=== PATIENT | male | born 1960 | race African-American/Black ===

== ENCOUNTER 2016-07-26 13:46 | Emergency (ER) | payer MEDICAID ==
[~2016-07-26] VITALS: Ht 177.8 cm; Wt 110.0 kg
[2016-07-26 13:51] VITALS: BP 151/95; PULSE 65; RESP 15; TEMP 98.2; O2SAT 95
[2016-07-26] MEDS ORDERED: TRAZ50TA12 PO (14:16)
[2016-07-26] MEDS ORDERED: METO100T PO (14:16)
[2016-07-26] MEDS ORDERED: GABA300C5 PO (14:16)
[2016-07-26] MEDS ORDERED: APIX5TAB PO (14:16)
--- NOTE | 2016-07-26 14:23 | PD ---
HPI Chief Complaint: Abnormal Results Time Seen by Provider: 14:23 Travel History International Travel<30 days: No Contact w/Intl Traveler<30days: No Traveled to known affect area: No History of Present Illness HPI 56-year-old male with a history of hypertension, hyperlipidemia, diabetes, history of right-sided hemorrhagic stroke status post craniotomy with residual left-sided deficits, bilateral DVTs, CHF with AICD pacemaker, A. fib anticoagulated on Eliquis presents to the emergency department for evaluation of left leg DVT. The patient states that he has had intermittent swelling in the left leg for the past 3-4 months. States that he told his PCP Dr. Little about the swelling and had an ultrasound done as an outpatient yesterday which shows he has a DVT of the left leg. States he was told to come to the emergency department for further evaluation. Patient states that he has filters placed in his groin to prevent blood clots from moving. States that he' s had bilateral DVTs since his stroke 18 months ago. He denies any pain in the leg. States that he does have paresthesias in the left leg that have been constant since the stroke. Denies any new numbness or tingling, weakness, fever , chills, nausea, vomiting, chest pain, shortness of breath, lightheadedness. No other complaints. PFSH Past Medical History Hx Anticoagulant Therapy: Yes Atrial Fibrillation: Yes Blood Disorders: Yes Depression: Yes Heart Rhythm Problems: Yes Cardiomyopathy: Yes (heart failure) High Cholesterol: Yes Congestive Heart Failure: Yes Cerebrovascular Accident: Yes Diabetes: Yes Patient Takes Glucophage: No Hypertension: Yes Medical other: Yes (dvt, uri, anemia) Tetanus Vaccination: < 5 Years Past Surgical History Neurologic Surgery: Yes (brain r/t brain bleed) Pacemaker: Yes (defib) Other Surgery: Yes (greenfilter) Social History Alcohol Use: No Tobacco Use: No Substance Use: No Allergies-Medications Reported Meds & Prescriptions Reported Meds & Active Scripts Active Reported Gabapentin 300 Mg Cap 300 Mg PO BID Metoprolol Tartrate 100 Mg Tab 100 Mg PO DAILY Trazodone (Trazodone HCl) 50 Mg Tab 50 Mg PO HS Eliquis (Apixaban) 5 Mg Tab 5 Mg PO BID Review of Systems Except as stated in HPI: all other systems reviewed are Neg Physical Exam Narrative GENERAL: Well-nourished and well-developed pleasant male patient in no acute distress. Obvious left sided deficits. SKIN: Warm and dry. HEAD: Post surgical right craniotomy. Atraumatic. EYES: No injection, drainage, or hyphema noted. PERRLA. EOMI. ENT: No nasal drainage noted. Oropharynx is clear. NECK: Supple and the trachea is midline. CARDIOVASCULAR: Regular rate and rhythm. RESPIRATORY: Breath sounds are equal bilaterally with no accessory muscle use, wheezing, rhonchi, or crackles. GASTROINTESTINAL: Abdomen is soft, non-tender, and nondistended. MUSCULOSKELETAL: Slight swelling of left ankle, patient reports this as chronic after an ankle fracture several years ago. No swelling of left leg compared to right. No calf tenderness. No obvious deformities, swelling, cyanosis, or ecchymosis is present throughout the upper and lower extremities. DP pulses palpable bilaterally. Capillary refill is within normal limits. Weakness in left arm and left leg chronic since CVA per patient. NEUROLOGICAL: Awake, alert, and oriented. Normal speech. Cranial nerves are grossly intact. Data Data Last Documented VS Vital Signs Date Time Temp Pulse Resp B/P Pulse Ox O2 Delivery O2 Flow Rate FiO2 07/26/16 13:51 98.2 65 15 151/95 95 MDM Medical Decision Making Medical Screen Exam Complete: Yes Emergency Medical Condition: Yes Differential Diagnosis DVT versus dependent edema versus insufficient anticoagulation Narrative Course 56-year-old male with a history of bilateral lower extremity DVTs anticoagulated on Eliquis presents to the emergency department for evaluation of left leg DVT. Patient is afebrile, vital signs are stable. His left leg does not appear acutely swollen compared to the left and is not tender to touch. I reviewed the ultrasound report from [facility] 07/25/16 which reads left distal popliteal and left peroneal DVT. The patient states his PCP sent him here to the ED. I called and spoke with the patient's PCP Dr. Little who wanted the patient evaluated because he is unsure if this is a new DVT or an old one. Dr. Little said he has only recently begun taking care of the patient. The patient seems to think he has "filters" placed in both groins, it is unclear if this is for DVT or if he is confusing an arterial stent placement. After speaking with the oncologist on-call, we agree this is likely a chronic DVT and does not require any acute intervention. He is to continue his Eliquis and will be discharged to follow-up as an outpatient with his PCP. Discussed this with the patient who verbalizes understanding and is in agreement with treatment plan. Instructed to return to the emergency department for any acute worsening of symptoms such as worsening leg swelling or pain, chest pain or shortness of breath or difficulty breathing. I discussed the case with my attending physician Dr. Salgado who is aware of the patients history, physical examination findings, and treatment plan. Physician Communication Physician Communication I spoke with Dr. Rider, frame pulley mortising machine operator oncologist, who agrees this is likely a chronic DVT and does not require admission or any acute intervention. He recommends continued Eliquis therapy and follow-up with his PCP. Diagnosis Primary Impression: Left leg DVT Qualified Code: I82.532 - Chronic deep vein thrombosis (DVT) of popliteal vein of left lower extremity Referrals: Primary Care Physician Patient Instructions: General Instructions Additional Instructions: Continue taking Eliquis as prescribed. Follow-up with your Primary Care Physician. Return to the ED for any acute worsening of symptoms such as worsening leg swelling or pain, chest pain, shortness of breath, difficulty breathing. Med/Other Pt SpecificInfo: No Change to Meds Disposition: 01 DISCHARGE HOME Condition: Stable Susan Segovia Jul 26, 2016 14:23
[2016-07-26 15:30] VITALS: BP 162/100; PULSE 60; RESP 19; O2SAT 97
== END 2016-07-26 16:00 | disposition home or self-care (01) ==
LOC: NEPA 13:46
DX: I82.532 Chronic embolism and thrombosis of left popliteal vein (principal); E11.9 Type 2 diabetes mellitus without complications; I10 Essential (primary) hypertension; E78.00 Pure hypercholesterolemia, unspecified; Z79.01 Long term (current) use of anticoagulants; Z95.810 Presence of automatic (implantable) cardiac defibrillator; Z86.79 Personal history of other diseases of the circulatory system; Z86.2 Personal history of diseases of the blood and blood-forming organs and certain disorders involving the immune mechanism; Z86.59 Personal history of other mental and behavioral disorders; Z86.73 Personal history of transient ischemic attack (TIA), and cerebral infarction without residual deficits
CPT/HCPCS: 99283

== ENCOUNTER 2016-08-13 17:34 | Emergency (ER) | payer MEDICAID ==
[~2016-08-13] VITALS: Ht 180.3 cm; Wt 109.0 kg
[~2016-08-13 17:34] MED LIST: APIX5TAB PO; GABA300C5 PO; METO100T PO; TRAZ50TA12 PO
[2016-08-13 17:36] VITALS: BP 163/96; PULSE 60; RESP 16; TEMP 98.2; O2SAT 98
[2016-08-13 21:51] VITALS: BP 137/85; PULSE 60; RESP 16; TEMP 97.8; O2SAT 100
[2016-08-14] MEDS ORDERED: SODIUM CHLORIDE 0.9% FLUSH 5 ML FLUSH IVF PRN
[2016-08-14 00:05] VITALS: RESP 18; O2SAT 98
[2016-08-14 00:08] LABS: AUTOMATED NEUTROPHIL # 2.5 TH/MM3 (1.8-7.7); BASOPHIL % 0.6 % (0.0-2.0); EOSINOPHIL # 0.1 TH/MM3 (0-0.4); EOSINOPHIL % 1.9 % (0.0-4.0); HEMATOCRIT 46.1 % (39.0-51.0); HEMO FLAGS DIFF FINAL; LYMPH % 36.7 % (9.0-44.0); LYMPHOCYTE # 1.8 TH/MM3 (1.0-4.8); MEAN CORPUSCULAR HEMOGLOBIN 28.7 PG (27.0-34.0); MONO % 9.2 % (0.0-8.0); NEUT % 51.6 % (16.0-70.0); PLATELET COUNT 160 TH/MM3 (150-450); RED CELL DISTRIBUTION WIDTH 13.2 % (11.6-17.2); WHITE BLOOD COUNT 4.9 TH/MM3 (4.0-11.0)
[2016-08-14 00:21] LABS: APTT (PATIENT) 27.8 SEC (24.3-30.1); PROTHROMBIN TIME - PATIENT 11.1 SEC (9.8-11.6)
[2016-08-14 00:35] LABS: ALT (GPT) 51 U/L (12-78); ANION GAP 9 MEQ/L (5-15); AST (GOT) 56 U/L (15-37); BICARBONATE 25.6 MEQ/L (21.0-32.0); CHLORIDE 104 MEQ/L (98-107); GLOMERULAR FILTRATION RATE 90 ML/MIN (>89); MAGNESIUM 2.1 MG/DL (1.5-2.5); POTASSIUM 5.2 MEQ/L (3.5-5.1); SODIUM (NA) 139 MEQ/L (136-145)
[2016-08-14 00:42] LABS: ALKALINE PHOSPHATASE 83 U/L (45-117); BLOOD UREA NITROGEN 12 MG/DL (7-18); CREATINE KINASE 341 U/L (39-308); TOTAL BILIRUBIN ADULT 0.9 MG/DL (0.2-1.0)
[2016-08-14 00:54] LABS: CKMB 1.2 NG/ML (0.5-3.6)
--- NOTE | 2016-08-14 01:12 | RADRPT ---
EXAM DATE/TIME: 08/14/2016 00:37 [facility] COMPARISON: No previous studies available for comparison. INDICATIONS : General weakness and dizziness. RADIATION DOSE: 56.36 CTDIvol (mGy) MEDICAL HISTORY : Stroke. Hypertension. Diabetes mellitus type 2. SURGICAL HISTORY : Brain surgery due to stroke. ENCOUNTER: Initial ACUITY: 1 day PAIN SCALE: 0/10 LOCATION: cranial TECHNIQUE: Multiple contiguous axial images were obtained of the head. Using automated exposure control and adj ustment of the mA and/or kV according to patient size, radiation dose was kept as low as reasonably a chievable to obtain optimal diagnostic quality images. FINDINGS: CEREBRUM: Large area of hypodensity involving the right frontal, parietal, and temporal regions with ex vacuo d ilatation of the right lateral ventricle. Findings indicate encephalomalacia/old insult in the distri bution of the right MCA. No evidence of acute intracranial hemorrhage or extra-axial fluid collection . No mass effect or midline shift. Zuniga matter white matter differentiation within normal limits. POSTERIOR FOSSA: The cerebellum and brainstem are intact. The 4th ventricle is midline. The cerebellopontine angle i s unremarkable. EXTRACRANIAL: The visualized portion of the orbits is intact. SKULL: Post surgical findings right frontal bone. CONCLUSION: Large area of encephalomalacia involving the right cerebellar hemisphere indicating old right MCA inf arct. No acute intracranial findings identified. Rosalino Psot MD on August 14, 2016 at 1:08 Board Certified Radiologist. This report was verified electronically.
[2016-08-14 01:45] VITALS: BP_SYST 133; BP_SYST 134; BP_SYST 138; BP_DIAS 76; BP_DIAS 83; BP_DIAS 89
[2016-08-14] MEDS ORDERED: TRAZ50TA12 PO (02:33)
--- NOTE | 2016-08-14 02:34 | PD ---
HPI Chief Complaint: Dizziness Time Seen by Provider: 23:02 Travel History International Travel<30 days: No Contact w/Intl Traveler<30days: No Traveled to known affect area: No History of Present Illness HPI 56-year-old male complains of lightheadedness and dizziness. He states is not vertiginous. He has had no loss of consciousness. Has been this way for about a week or so. He reports feeling dizzy while walking around after episodes of sitting. It's worse in the morning as well. He's had no nausea vomiting shortness of breath or chest pain. He notes having stopped taking trazodone a few days ago as his primary care provider Dr. Ledezma would not prescribe it. He 's had no fever or vomiting. He's had no tinnitus or otalgia. Patient did suffer from a CVA a couple months prior and has left hemiparesis PFSH Past Medical History Hx Anticoagulant Therapy: Yes (ELIQUIS) Atrial Fibrillation: Yes Blood Disorders: Yes Depression: Yes Heart Rhythm Problems: Yes Cardiomyopathy: Yes (heart failure) Cardiovascular Problems: Yes (HTN) High Cholesterol: Yes Congestive Heart Failure: Yes Cerebrovascular Accident: Yes Diabetes: Yes Patient Takes Glucophage: No Hypertension: Yes Tetanus Vaccination: Unknown Influenza Vaccination: No Past Surgical History Neurologic Surgery: Yes (brain r/t brain bleed) Pacemaker: Yes (defib) Other Surgery: Yes (greenfilter) Social History Alcohol Use: No Tobacco Use: No Substance Use: No Allergies-Medications (Allergen,Severity, Reaction): Coded Allergies: Penicillin (Verified Allergy, Unknown, 08/13/16) Reported Meds & Prescriptions Reported Meds & Active Scripts Active Trazodone (Trazodone HCl) 50 Mg Tab 50 Mg PO HS 30 Days Reported Gabapentin 300 Mg Cap 300 Mg PO BID Metoprolol Tartrate 100 Mg Tab 100 Mg PO DAILY Eliquis (Apixaban) 5 Mg Tab 5 Mg PO BID Review of Systems Except as stated in HPI: all other systems reviewed are Neg General / Constitutional: No: Fever Physical Exam Narrative GENERAL: 56-year-old male no acute distress pleasant SKIN: Warm and dry. HEAD: Atraumatic. Patient has well-healed neurosurgical scar. EYES: Pupils equal and round. No scleral icterus. No injection or drainage. No nystagmus ENT: No nasal bleeding or discharge. Mucous membranes pink and moist. NECK: Trachea midline. No JVD. CARDIOVASCULAR: Regular rate and rhythm. No murmur appreciated. RESPIRATORY: No accessory muscle use. Clear to auscultation. Breath sounds equal bilaterally. GASTROINTESTINAL: Abdomen soft, non-tender, nondistended. Hepatic and splenic margins not palpable. MUSCULOSKELETAL: No obvious deformities. No clubbing. No cyanosis. No edema. NEUROLOGICAL: Awake and alert. There is paralysis of the left upper and left lower extremity. Cranial nerves are grossly preserved. Speech is normal. PSYCHIATRIC: Appropriate mood and affect; insight and judgment normal. Data Data Last Documented VS Vital Signs Date Time Temp Pulse Resp B/P Pulse Ox O2 Delivery O2 Flow Rate FiO2 08/14/16 03:00 60 20 134/89 100 08/14/16 00:05 Room Air 08/13/16 21:51 97.8 Orders Electrocardiogram (08/13/16 23:48) Complete Blood Count With Diff (08/13/16 23:48) Comprehensive Metabolic Panel (08/13/16 23:48) Magnesium (Mg) (08/13/16 23:48) Ckmb (Isoenzyme) Profile (08/13/16 23:48) Troponin I (08/13/16 23:48) Act Partial Throm Time (Ptt) (08/13/16 23:48) Prothrombin Time / Inr (Pt) (08/13/16 23:48) Urinalysis - C+S If Indicated (08/13/16 23:48) Ct Brain W/O Iv Contrast(Rout) (08/13/16 23:48) Ecg Monitoring (08/13/16 23:48) Iv Access Insert/Monitor (08/13/16:48) Oximetry (08/13/16 23:48) Sodium Chloride 0.9% Flush (Ns Flush) (08/14/16 00:00) Orthostatic Vital Signs (08/13/16 23:48) CKMB (08/13/16 23:30) CKMB% (08/13/16 23:30) Labs Laboratory Tests Test 08/13/16 23:30 White Blood Count 4.9 TH/MM3 Red Blood Count 5.30 MIL/MM3 Hemoglobin 15.2 GM/DL Hematocrit 46.1 % Mean Corpuscular Volume 87.0 FL Mean Corpuscular Hemoglobin 28.7 PG Mean Corpuscular Hemoglobin 33.0 % Concent Red Cell Distribution Width 13.2 % Platelet Count 160 TH/MM3 Mean Platelet Volume 8.6 FL Neutrophils (%) (Auto) 51.6 % Lymphocytes (%) (Auto) 36.7 % Monocytes (%) (Auto) 9.2 % Eosinophils (%) (Auto) 1.9 % Basophils (%) (Auto) 0.6 % Neutrophils # (Auto) 2.5 TH/MM3 Lymphocytes # (Auto) 1.8 TH/MM3 Monocytes # (Auto) 0.5 TH/MM3 Eosinophils # (Auto) 0.1 TH/MM3 Basophils # (Auto) 0.0 TH/MM3 CBC Comment DIFF FINAL Differential Comment Prothrombin Time 11.1 SEC Prothromb Time International 1.0 RATIO Ratio Activated Partial 27.8 SEC Thromboplast Time Sodium Level 139 MEQ/L Potassium Level 5.2 MEQ/L Chloride Level 104 MEQ/L Carbon Dioxide Level 25.6 MEQ/L Anion Gap 9 MEQ/L Blood Urea Nitrogen 12 MG/DL Creatinine 1.04 MG/DL Estimat Glomerular Filtration 90 ML/MIN Rate Random Glucose 70 MG/DL Calcium Level 9.0 MG/DL Magnesium Level 2.1 MG/DL Total Bilirubin 0.9 MG/DL Aspartate Amino Transf 56 U/L (AST/SGOT) Alanine Aminotransferase 51 U/L (ALT/SGPT) Alkaline Phosphatase 83 U/L Total Creatine Kinase 341 U/L Creatine Kinase MB 1.2 NG/ML Creatine Kinase MB % 0.4 % Troponin I LESS THAN 0.02 NG/ML Total Protein 8.7 GM/DL Albumin 4.3 GM/DL MDM Medical Decision Making Medical Screen Exam Complete: Yes Emergency Medical Condition: Yes Medical Record Reviewed: Yes Differential Diagnosis Arrhythmia, anemia, electrolyte imbalance, dehydration, medication withdrawal, medication side effect Narrative Course CBC & BMP Diagram 08/13/16 23:30 AST 56 Total CK 341 Tn < 0.02 EK electronic atrial pacemaker Patient had 18 point increasing heart rate upon standing. He might be mildly dehydrated. He has received IV fluids. Will refill his trazodone prescription. It seems as though the patient is having mild orthostatic hypotension. Return precautions discussed. Follow up with primary care provider. Diagnosis Primary Impression: Lightheadedness Referrals: DR LEDEZMA 2 days Additional Instructions: You have a choice when it comes to health care, and we are glad that you chose [facility]. Hopefully, we have met your expectations on today's visit. You are welcome to return to [facility] at any time, as we are committed to meeting the health care needs of our community. Med/Other Pt SpecificInfo: Prescription(s) given Scripts Trazodone 50 Mg Tab50 Mg PO HS 30 Days Ref 0 Prov:Guille Bazzi MD 08/14/16 Disposition: 01 DISCHARGE HOME Condition: Stable Guille Bazzi MD Aug 14, 2016 02:34
[2016-08-14 03:00] VITALS: BP 134/89
--- NOTE | 2016-08-14 14:44 | EKG ---
Date Performed: 08/14/2016 Time Performed: 00:06:09 PTAGE: 56 years EKG: ELECTRONIC ATRIAL PACEMAKER MODERATE INTRAVENTRICULAR CONDUCTION DELAY MODERATE T-WAVE ABNO RMALITY, CONSIDER ANTEROLATERAL ISCHEMIA MODERATE T-WAVE ABNORMALITY, CONSIDER INFERIOR ISCHEMIA ABNO RMAL ECG NO PREVIOUS TRACING DOCTOR: Anoop Harley Interpretating Date/Time 08/14/2016 14:39:45
== END 2016-08-14 03:02 | disposition home or self-care (01) ==
LOC: NEPC 17:34
DX: R42 Dizziness and giddiness (principal); R94.31 Abnormal electrocardiogram [ECG] [EKG]; I48.91 Unspecified atrial fibrillation; Z79.01 Long term (current) use of anticoagulants; I42.9 Cardiomyopathy, unspecified; I50.9 Heart failure, unspecified; I10 Essential (primary) hypertension; Z88.0 Allergy status to penicillin; Z95.0 Presence of cardiac pacemaker
CPT/HCPCS: 70450; 80053; 82550; 82552; 83735; 84484; 85025; 85610; 85730; 93005